=== PATIENT | male | born 1970 | race Two or more races ===

== ENCOUNTER 2024-02-19 14:59 | Outpatient (RCR) | payer BC, SELFPAY | END 2024-03-15 23:59 | disposition home or self-care (01) | LOC: SCTC 14:59 | PROVIDERS: Referring Provider Nurse Practitioner Family; Visit Provider Nurse Practitioner Family | DX: Z09 Encounter for follow-up examination after completed treatment for conditions other than malignant neoplasm (principal); Z86.2 Personal history of diseases of the blood and blood-forming organs and certain disorders involving the immune mechanism | CPT/HCPCS: 99212; G0463 ==